=== PATIENT | male | born 1945 | race African-American/Black ===

== ENCOUNTER 2020-12-08 06:18 | Inpatient (IN) | payer OTHER ==
[2020-12-04 10:53] LABS: INR 0.95 (0.9-1.15); Partial Thromboplastin Time 30.6 sec (23.6-33.0)
[2020-12-07 14:04] LABS: Hemoglobin 13.5 g/dL (13.5-17.5); Monocytes # (auto) 0.3 10 ^3/uL (0-1.3); Neutrophils % (auto) 58.7 % (37.0-80.0); Nucleated Red Blood Cells % 0.1 %; White Blood Cell 4.7 10^3/uL (4.4-10.8)
[2020-12-07 14:07] LABS: Basophils # (auto) 0 10 ^3/uL (0-0.2); Basophils % (auto) 0.9 % (0.0-2.0); Eosinophils # (auto) 0 10 ^3/uL (0-0.8); Eosinophils % (auto) 0.9 % (0.0-7.0); Hematocrit 39.5 % (41.0-53.0); Lymphocytes # (auto) 1.6 10 ^3/uL (0.4-5.4); Lymphocytes % (auto) 33.1 % (10.0-50.0); Mean Corpuscular Hemoglobin 34.6 pg (28.0-32.0); Mean Corpuscular Hgb Conc. 34.2 g/dL (32.0-36.0); Mean Corpuscular Volume 101.3 fL (80.0-100.0); Monocytes % (auto) 6.4 % (0.0-12.0); Neutrophils # (auto) 2.7 10 ^3/uL (1.6-8.6); Red Cell Distribution Width 15.3 % (11.8-14.3)
[2020-12-07 14:50] LABS: Albumin 3.8 g/dL (3.4-5.0); Calcium 9.1 mg/dL (8.5-10.1); Potassium 3.8 mmol/L (3.5-5.1)
[2020-12-07 14:56] LABS: BUN/Creatinine Ratio 9.9; Bilirubin, Total 0.4 mg/dL (0.2-1.0); Total Protein 7.9 g/dL (6.4-8.2)
[~2020-12-08] VITALS: Ht 182.9 cm; Wt 85.2 kg
[2020-12-08] VITALS (11 sets, daily range): BP systolic 113–124; BP diastolic 68–78
[~2020-12-08 06:18] MED LIST: AMLO-496 PO; ASPI1TAB20 PO; ATOR20TA PO; CHOL1TAB28 PO; CYAN1TAB14 PO; ETOD400T3 PO; IPRAAER6 IN; LATA0.0019 OP; LIDO5DIS21 TOP; LORA-622 PO; MULT-1018 OR; NIC21P TD
[2020-12-08] MEDS ORDERED: TRANEXAMIC ACID 20 ML ONE ×2 (07:03→07:19)
[2020-12-08] MEDS ORDERED: EPINEPHrine HCL 1 MG/1 ML AMP ONE (07:04)
[2020-12-08] MEDS ORDERED: ACETAMINOPHEN IV 100 ML IV ONE (07:08)
[2020-12-08] MEDS ORDERED: ceFAZolin 1GM/50ML 100 ML IV ONE (07:08)
[2020-12-08] MEDS ORDERED: CELECOXIB 100 MG CAP ONE (07:09)
[2020-12-08] MEDS ORDERED: PREGABALIN CAPSULE 75 MG CAP ONE (07:09)
[2020-12-08] MEDS ORDERED: TETRACAINE 1% INJ 2 ML VIAL IJ ONE (07:16)
[2020-12-08] MEDS ORDERED: MORPHINE SULF PF 2 MG/2 ML SYRG ONE (07:20)
[2020-12-08] MEDS ORDERED: fentaNYL CITRATE 100 MCG/2 ML VL ONE (07:20)
[2020-12-08] MEDS ORDERED: MIDAZOLAM HCL 2MG/2ML 2ml VIAL (1mg/ml) ONE ×2 (07:21→07:44)
[2020-12-08] MEDS ORDERED: PROPOFOL 10 MG/ML 20 ML IV ONE (07:43)
[2020-12-08] MEDS ORDERED: DexAMETHasone SOD PHOS 10MG/1ML VIAL INJ ONE (07:43)
[2020-12-08] MEDS ORDERED: VANCOMYCIN HCL 1000 MG VL ONE (08:23)
[2020-12-08] MEDS ORDERED: diphenhdrAMINE HCL 50 MG/1 ML VL IV PRN (08:30)
[2020-12-08] MEDS ORDERED: ONDANSETRON HCL 4 MG/2 ML VIAL IV PRN ×3 (08:30→16:00)
[2020-12-08] MEDS ORDERED: MIDAZOLAM HCL 2MG/2ML 2ml VIAL (1mg/ml) IV PRN (08:30)
[2020-12-08] MEDS ORDERED: ePHEDrine SULFATE 50 MG/ML AMP IV PRN (08:30)
[2020-12-08] MEDS ORDERED: DexAMETHasone SOD PHOS 10MG/1ML VIAL INJ IV PRN (08:30)
[2020-12-08] MEDS ORDERED: HYDROmorphone HCL 2 MG/ML VL IV PRN (08:30)
[2020-12-08] MEDS ORDERED: LABETALOL HCL 5 MG/ML 4ML SYRINGE IV PRN (08:30)
[2020-12-08] MEDS ORDERED: NALOXONE HCL 0.4 MG/ML VIAL IV PRN (08:30)
[2020-12-08] MEDS ORDERED: NALBUPHINE HCL 10 MG/1ml INJECTION SUBCUT ONE (08:30)
[2020-12-08] MEDS: D5W/LACTATED RINGERS 1,000 ML IV SCH ×2 (11:00→21:59)
[2020-12-08] MEDS ORDERED: IPRATROPIUM-ALBUTEROL 20mCg/100mCg INHALER IN SCH (12:00)
[2020-12-08] MEDS: ACETAMINOPHEN 325 MG TAB PO SCH ×2 (13:28→18:00)
[2020-12-08] MEDS: KETOROLAC TROMETH 30 MG/ML 1ML VIAL IV SCH ×2 (13:28→18:00)
[2020-12-08] MEDS ORDERED: ALBUTEROL SULF 2.5 MG/0.5ML(0.5%) NEB SOLN NEB PRN (13:45)
[2020-12-08] MEDS ORDERED: ceFAZolin 2 GM in D5W 5% 100 ML IV SCH (14:00)
[2020-12-08] MEDS: oxyCODONE HCL 5MG TAB PO PRN (14:30)
[2020-12-08] MEDS: ONDANSETRON HCL 4 MG/2 ML VIAL IV PRN ×2 (16:47→21:45)
[2020-12-08] MEDS: HYDROmorphone HCL 2 MG/ML VL IV PRN (16:47)
[2020-12-08] MEDS ORDERED: COMBIVENT INHALER IN SCH (18:00)
[2020-12-08] MEDS: IPRATROPIUM BROM 0.5 MG/2.5ML INH SOL NEB SCH (19:14)
[2020-12-08] MEDS: ALBUTEROL SULF 2.5 MG/0.5ML(0.5%) NEB SOLN NEB SCH (19:15)
[2020-12-08] MEDS: ceFAZolin 2 GM in D5W 5% 100 ML IV SCH (21:44)
[2020-12-08] MEDS: PREGABALIN 25 MG CAP PO SCH (21:45)
[2020-12-08] MEDS: ATORVASTATIN 20 MG TAB PO SCH (21:45)
[2020-12-08] MEDS: LATANOPROST EYE OP SCH (22:00)
[2020-12-08] MEDS ORDERED: LATANOPROST 0.005 % OPTH(EYE) SOL 2.5ML OP SCH (22:00)
[2020-12-08] MEDS ORDERED: LORATADINE 10 MG TAB PO SCH (22:00)
[2020-12-09] VITALS (11 sets, daily range): BP systolic 102–121; BP diastolic 60–71
[2020-12-09] MEDS: KETOROLAC TROMETH 30 MG/ML 1ML VIAL IV SCH ×4 (00:13→17:56)
[2020-12-09] MEDS: ACETAMINOPHEN 325 MG TAB PO SCH ×4 (00:14→17:56)
[2020-12-09] MEDS: oxyCODONE HCL 5MG TAB PO PRN ×2 (03:39→13:29)
[2020-12-09] MEDS: ceFAZolin 2 GM in D5W 5% 100 ML IV SCH (06:11)
[2020-12-09] MEDS: D5W/LACTATED RINGERS 1,000 ML IV SCH (06:26)
[2020-12-09] MEDS: IPRATROPIUM BROM 0.5 MG/2.5ML INH SOL NEB SCH ×3 (06:47→18:51)
[2020-12-09] MEDS: ALBUTEROL SULF 2.5 MG/0.5ML(0.5%) NEB SOLN NEB SCH ×3 (06:47→18:51)
[2020-12-09] MEDS: HYDROmorphone HCL 2 MG/ML VL IV PRN ×2 (09:54→22:00)
[2020-12-09] MEDS: ONDANSETRON HCL 4 MG/2 ML VIAL IV PRN (09:55)
[2020-12-09] MEDS: NICOTINE 21MG/24 HR TOPICAL PATCH TD SCH (10:00)
[2020-12-09] MEDS: ASPirin 81 mg TAB PO SCH ×2 (10:00→21:52)
[2020-12-09] MEDS: LORATADINE 10 MG TAB PO SCH (10:00)
[2020-12-09] MEDS: amLODIPine BESYLATE 5 MG TAB PO SCH (10:00)
[2020-12-09] MEDS: PREGABALIN 25 MG CAP PO SCH ×2 (10:00→21:52)
[2020-12-09] MEDS: LATANOPROST EYE OP SCH ×2 (10:00→22:00)
[2020-12-09 11:42] LABS: Basophils # (auto) 0 10 ^3/uL (0-0.2); Eosinophils # (auto) 0 10 ^3/uL (0-0.8); Hemoglobin 10.9 g/dL (13.5-17.5)
[2020-12-09 11:45] LABS: Basophils % (auto) 0.4 % (0.0-2.0); Hematocrit 32.1 % (41.0-53.0); Lymphocytes # (auto) 0.6 10 ^3/uL (0.4-5.4); Lymphocytes % (auto) 8.2 % (10.0-50.0); Mean Corpuscular Hemoglobin 34.8 pg (28.0-32.0); Mean Corpuscular Volume 102.2 fL (80.0-100.0); Monocytes # (auto) 0.8 10 ^3/uL (0-1.3); Monocytes % (auto) 10.2 % (0.0-12.0); Neutrophils % (auto) 81.2 % (37.0-80.0); Red Blood Cells 3.14 10^6/uL (4.5-5.90); Red Cell Distribution Width 15.6 % (11.8-14.3); White Blood Cell 7.4 10^3/uL (4.4-10.8)
[2020-12-09 11:51] LABS: Calcium 8.6 mg/dL (8.5-10.1); Potassium 4.1 mmol/L (3.5-5.1)
[2020-12-09 11:53] LABS: BUN/Creatinine Ratio 10.6
[2020-12-09] MEDS: ATORVASTATIN 20 MG TAB PO SCH (21:52)
[2020-12-10] MEDS: KETOROLAC TROMETH 30 MG/ML 1ML VIAL IV SCH ×2 (00:11→06:00)
[2020-12-10] MEDS: ACETAMINOPHEN 325 MG TAB PO SCH ×3 (00:11→07:00)
[2020-12-10] MEDS: ALBUTEROL SULF 2.5 MG/0.5ML(0.5%) NEB SOLN NEB SCH ×5 (00:19→18:57)
[2020-12-10] MEDS: IPRATROPIUM BROM 0.5 MG/2.5ML INH SOL NEB SCH ×5 (00:19→18:57)
[2020-12-10 05:00] VITALS: BP 108/62
[2020-12-10 09:03] VITALS: BP 102/67
[2020-12-10] MEDS: oxyCODONE HCL 5MG TAB PO PRN ×4 (09:16→22:34)
[2020-12-10] MEDS: NICOTINE 21MG/24 HR TOPICAL PATCH TD SCH (09:16)
[2020-12-10] MEDS: LATANOPROST EYE OP SCH ×2 (09:17→22:00)
[2020-12-10] MEDS: LORATADINE 10 MG TAB PO SCH (09:17)
[2020-12-10] MEDS: ASPirin 81 mg TAB PO SCH ×2 (09:17→22:33)
[2020-12-10] MEDS: amLODIPine BESYLATE 5 MG TAB PO SCH (09:17)
[2020-12-10] MEDS: PREGABALIN 25 MG CAP PO SCH ×2 (09:17→22:00)
[2020-12-10 12:45] LABS: Hemoglobin 10.5 g/dL (13.5-17.5)
[2020-12-10 12:47] LABS: Hematocrit 30.7 % (41.0-53.0)
[2020-12-10 13:30] VITALS: BP 101/54
[2020-12-10 16:13] VITALS: BP 113/66
[2020-12-10 20:00] VITALS: BP 120/71
[2020-12-10 21:54] VITALS: BP 120/71
[2020-12-10] MEDS: ATORVASTATIN 20 MG TAB PO SCH (22:33)
[2020-12-11] MEDS: ACETAMINOPHEN 325 MG TAB PO SCH ×6 (01:00→17:13)
[2020-12-11 04:55] VITALS: BP 106/57
[2020-12-11] MEDS: KETOROLAC TROMETH 30 MG/ML 1ML VIAL IV SCH ×4 (05:54→17:13)
[2020-12-11] MEDS: IPRATROPIUM BROM 0.5 MG/2.5ML INH SOL NEB SCH ×2 (06:00→12:00)
[2020-12-11] MEDS: ALBUTEROL SULF 2.5 MG/0.5ML(0.5%) NEB SOLN NEB SCH ×2 (06:00→12:00)
[2020-12-11 09:00] VITALS: BP 123/65
[2020-12-11] MEDS: LORATADINE 10 MG TAB PO SCH (09:59)
[2020-12-11] MEDS: LATANOPROST EYE OP SCH (09:59)
[2020-12-11] MEDS: PREGABALIN 25 MG CAP PO SCH (10:00)
[2020-12-11] MEDS: amLODIPine BESYLATE 5 MG TAB PO SCH (10:01)
[2020-12-11] MEDS: NICOTINE 21MG/24 HR TOPICAL PATCH TD SCH (10:01)
[2020-12-11] MEDS: ASPirin 81 mg TAB PO SCH (10:01)
[2020-12-11 13:00] VITALS: BP 113/61
[2020-12-11 16:35] VITALS: BP 106/57
== END 2020-12-11 18:25 | DRG 470 ==
LOC: SUR 06:18 → TELE 10:59 → TELE-CENTR 13:50
PROVIDERS: ADMIT Orthopaedic Surgery; ATTEND Internal Medicine
PROC: 0SRC069 Replacement of Right Knee Joint with Oxidized Zirconium on Polyethylene Synthetic Substitute, Cemented, Open Approach (ICD-10-PCS; principal; 2020-12-08 07:41)
DX: M17.11 Unilateral primary osteoarthritis, right knee (principal); D62 Acute posthemorrhagic anemia; T41.45XA Adverse effect of unspecified anesthetic, initial encounter; I10 Essential (primary) hypertension; R11.2 Nausea with vomiting, unspecified; E78.5 Hyperlipidemia, unspecified; Z20.822 Contact with and (suspected) exposure to COVID-19
CPT/HCPCS: 36415; 73560; 80048; 80053; 85014; 85018; 85025; 85610; 85730; 86850; 86900; 86901; 87426; 94640; 97110; 97116; 97163; 97530; G0378; J0131; J0171; J0690; J1100; J1885; J2250; J2405; J2704; J7060